=== PATIENT | female | born 1960 | race Caucasian/White ===

== ENCOUNTER 2019-01-06 01:19 | Emergency (ER) | payer OTHER ==
[~2019-01-06] VITALS: Ht 167.6 cm; Wt 95.3 kg
[~2019-01-06 01:19] MED LIST: AMPH15TA2 PO; FLUO40CA8 PO
[2019-01-06] MEDS ORDERED: HALOPERIDOL LACTATE 5 MG/1 ML VIAL ONE (01:40)
[2019-01-06] MEDS ORDERED: LORAZEPAM 2 MG/1 ML VIAL ONE (01:41)
[2019-01-06] MEDS ORDERED: HALOPERIDOL LACTATE 5 MG/1 ML VIAL IM ONE (01:45)
[2019-01-06] MEDS ORDERED: LORAZEPAM 2 MG/1 ML VIAL IM ONE (01:45)
--- NOTE | 2019-01-06 01:45 | NUR ---
Patient BIB [id number] from home for c/o ETOH. EMT's endorsed that friend had called 911 for patient to be brought to the ER. Patient AAxO x2. Patient has slurred speech, but able to speak complete sentences. No neuro deficits. No respiratory distress. No SOB, no cough. No cardiovascular distress, all pulses palpable. No GI/ Patient in bed at lowest setting. Side rails up x2. Call light within reach. Fall precautions implemented per protocol.
[2019-01-06 01:54] LABS: BASOPHILS % (AUTO) 0.4 % (0.0-2.0); EOSINOPHILS % (AUTO) 0.1 % (0.0-7.0); HEMATOCRIT 47.3 % (31.2-41.9); HEMOGLOBIN 16.3 g/dL (10.9-14.3); LYMPHOCYTES # (AUTO) 1.9 K/uL (20.0-40.0); LYMPHOCYTES % (AUTO) 19.1 % (20.5-51.5); MEAN CORPUSCULAR HEMOGLOBIN 30.9 uug (24.7-32.8); MEAN CORPUSCULAR HGB CONC 35 g/dL (32.3-35.6); MEAN CORPUSCULAR VOLUME 89.5 fL (75.5-95.3); MONOCYTES # (AUTO) 0.5 K/uL (2.0-10.0); MONOCYTES % (AUTO) 5.1 % (0.0-11.0); NEUTROPHILS # (AUTO) 7.3 K/uL (1.8-8.9); NEUTROPHILS % (AUTO) 75.3 % (38.5-71.5); PLATELET COUNT (AUTO) 291 K/uL (179-408); RED BLOOD CELL COUNT(AUTO) 5.29 MIL/uL (3.63-4.92); WHITE BLOOD COUNT (AUTO) 9.7 K/uL (3.8-11.8)
[2019-01-06 02:02] LABS: CREATININE 0.7 mg/dL (0.6-1.3); POTASSIUM 3.7 mmol/L (3.5-5.1)
[2019-01-06 02:07] LABS: BILIRUBIN,DIRECT 0.1 mg/dL (0.0-0.2); BILIRUBIN,TOTAL 0.6 mg/dL (0.2-1.0); TOTAL PROTEIN, SERUM 7.3 g/dL (6.4-8.2)
--- NOTE | 2019-01-06 05:10 | NUR ---
Patient sleeping in bed NAD
--- NOTE | 2019-01-06 06:41 | NUR ---
Patient discharged to home in stable conditon. Written and verbal after care instructions given. Patient verbalizes understanding of instructions. Mari picked up patient from department. Patient ambulated with stable gait.
[2019-01-06 06:44] VITALS: BP 117/60
== END 2019-01-06 06:45 | disposition home or self-care (01) ==
LOC: ER 01:22
DX: F10.129 Alcohol abuse with intoxication, unspecified (principal); K21.9 Gastro-esophageal reflux disease without esophagitis; Z79.899 Other long term (current) drug therapy; Y90.7 Blood alcohol level of 200-239 mg/100 ml
CPT/HCPCS: 36415; 80048; 80076; 83690; 85025; 96372 ×2; 99283; G0480; J1630; J2060; A4663